=== PATIENT | male | born 1995 | race Two or more races ===

== ENCOUNTER 2024-06-30 20:26 | Emergency (ER) | payer SELFPAY ==
[~2024-06-30] VITALS: Ht 165.1 cm; Wt 81.8 kg
[2024-06-30 20:35] VITALS: BP 137/82; PULSE 99; RESP 18; O2SAT 95
[2024-06-30 21:31] LABS: Hematocrit 46.3 % (41.0-53.0); Hemoglobin 16.4 g/dL (13.5-17.5); Mean Corpuscular Hgb Conc. 35.5 g/dL (32.0-36.0); Platelet Count (auto) 367 10^3/uL (140-450); Red Blood Cells 4.97 10^6/uL (4.5-5.90); Red Cell Distribution Width 12.9 % (11.8-14.3)
[2024-06-30 21:35] LABS: Basophils % (manual) 0 (0.0-2.0); Blast Cells 0; Metamyelocytes % 0; Myelocytes % 0; Promyelocytes % 0; Reactive Lymphocytes 0
[2024-06-30 21:44] LABS: Chloride 111 mmol/L (98-107); Potassium 4.4 mmol/L (3.5-5.1); Sodium 147 mmol/L (136-145)
[2024-06-30 21:45] LABS: Anion Gap 7 (5-15); Calcium 9.9 mg/dL (8.7-10.4); Carbon Dioxide 29 mmol/L (20-31)
[2024-06-30 21:50] LABS: BUN/Creatinine Ratio 6.9 (10.0-20.0); Blood Urea Nitrogen 8 mg/dL (9-23); Glucose 114 mg/dL (74-106)
[2024-06-30 21:54] LABS: Salicylate < 3.0 mg/dL (-30)
[2024-06-30 22:00] LABS: Blood Alcohol 321.8 mg/dL (<10)
[2024-06-30 22:08] LABS: Band Neutrophils % (manual) 2; Eosinophils % (manual) 14 (0-7); Lymphocytes % (manual) 45 (10.0-50.0); Monocytes % (manual) 4 (0-12)
[2024-06-30 22:09] LABS: Platelet Estimate Adequate
== END 2024-06-30 22:24 | disposition left against medical advice (07) ==
LOC: EDBD 20:26 → ER 20:26
DX: S80.212A Abrasion, left knee, initial encounter (principal); R51.9 Headache, unspecified; M54.2 Cervicalgia; M25.562 Pain in left knee; F10.129 Alcohol abuse with intoxication, unspecified; X58.XXXA Exposure to other specified factors, initial encounter; Y93.89 Activity, other specified; Y92.89 Other specified places as the place of occurrence of the external cause; Y99.8 Other external cause status; Y90.0 Blood alcohol level of less than 20 mg/100 ml
CPT/HCPCS: 36415; 70450; 72125; 73562; 80048; 80320; 80329; 85007; 85027